=== PATIENT | male | born 1950 | race Caucasian/White ===

== ENCOUNTER 2017-07-25 17:59 | Emergency (ER) | payer OTHER ==
[2017-07-25] MEDS ORDERED: ASPIRIN81 MG PO (19:26)
[2017-07-25] MEDS ORDERED: JANUVIA100 MG PO (19:27)
[2017-07-25] MEDS ORDERED: METFORMIN500 M1 PO (19:27)
[2017-07-25] MEDS ORDERED: PRADAXA150 MG PO (19:28)
[2017-07-25] MEDS ORDERED: SOTALOL HCL80 MG PO (19:28)
[2017-07-25] MEDS ORDERED: AMLODIPINE5 MG PO (19:29)
[2017-07-25] MEDS ORDERED: ULORIC40 MG PO (19:30)
[2017-07-25] MEDS ORDERED: ISOSORB MONO30 MG PO (19:30)
[2017-07-25] MEDS ORDERED: SIMVASTATIN20 MG PO (19:30)
[2017-07-25] MEDS ORDERED: ULTRAM50 M1 PO (20:32)
[2017-07-25] MEDS ORDERED: KEFLEX500 M1 PO (20:32)
[2017-07-25 20:40] VITALS: BP 144/74
== END 2017-07-25 20:40 | disposition home or self-care (01) | DRG 605 ==
LOC: ED 17:59
PROC: 0HQGXZZ Repair Left Hand Skin, External Approach (ICD-10-PCS; principal; 2017-07-25)
DX: S61.412A Laceration without foreign body of left hand, initial encounter (principal); I50.9 Heart failure, unspecified; E11.9 Type 2 diabetes mellitus without complications; W29.3XXA Contact with powered garden and outdoor hand tools and machinery, initial encounter; Y93.H9 Activity, other involving exterior property and land maintenance, building and construction; Y92.009 Unspecified place in unspecified non-institutional (private) residence as the place of occurrence of the external cause; Z79.02 Long term (current) use of antithrombotics/antiplatelets; Z95.0 Presence of cardiac pacemaker

== ENCOUNTER 2019-02-15 12:13 | Emergency (ER) | payer OTHER ==
[~2019-02-15] VITALS: Ht 175.3 cm; Wt 98.0 kg
[~2019-02-15 12:13] MED LIST: AMLODIPINE5 MG PO; ASPIRIN81 MG PO; ISOSORB MONO30 MG PO; JANUVIA100 MG PO; KEFLEX500 M1 PO; METFORMIN500 M1 PO; PRADAXA150 MG PO; SIMVASTATIN20 MG PO; SOTALOL HCL80 MG PO; ULORIC40 MG PO; ULTRAM50 M1 PO
[2019-02-15 13:24] LABS: HEMATOCRIT 45.4 % (39.0-50.0); IMMATURE GRANULOCYTES 0.4 % (0.0-5.0); MEAN CORPUSCULAR HGB 31.7 pG CALC (26.0-32.0); NEUT# 7.03 thou/uL (1.82-7.42); RED BLOOD COUNT 4.73 mill/uL (4.70-6.10); RED CELL DISTRI WIDTH 13.7 % (11.5-15.5)
[2019-02-15 13:43] LABS: ALBUMIN 4.7 g/dL (3.2-5.0); ALKALINE PHOSPHATASE 53 u/l (38-126); ANION GAP 16 (6-22 (CALC)); BILIRUBIN, TOTAL 0.6 mg/dL (0.0-1.4); BUN 18 mg/dL (8-23); BUN/CREATININE RATIO 18 (12-20 (CALC)); CARBON DIOXIDE 27 mmol/l (22-30); CHLORIDE 107 mmol/l (95-108); CPK 29 u/l (52-200); GFR > 60 ML/MIN (>=60 (CALC)); GFR FOR AFR.AMER. > 60 ML/MIN (>=60 (CALC)); LIPASE 162 u/l (23-300); POTASSIUM 4.2 mmol/l (3.5-5.1); SGOT/AST 18 u/l (19-48); SODIUM 145 mmol/l (137-146)
[2019-02-15] MEDS ORDERED: TRAMADOL HYDROC50 MG PO (14:49)
[2019-02-15 14:55] VITALS: BP 150/84
== END 2019-02-15 15:10 | disposition home or self-care (01) | DRG 556 ==
LOC: ED 12:13
DX: M25.511 Pain in right shoulder (principal); E11.9 Type 2 diabetes mellitus without complications; I48.91 Unspecified atrial fibrillation; I11.0 Hypertensive heart disease with heart failure; I50.9 Heart failure, unspecified; Z95.0 Presence of cardiac pacemaker